=== PATIENT | male | born 1950 | race Caucasian/White ===

== ENCOUNTER 2024-04-04 10:51 | Observation (INO) ==
[2024-04-04 13:38] LABS: Urine Appearance Turbid; Urine Bilirubin Negative (Negative); Urine Blood Negative (Negative); Urine Color Yellow; Urine Glucose Negative (Negative); Urine Ketones 1+ (Negative); Urine Nitrite Negative (Negative); Urine Protein 2+ (>=100 mg/dL) (Negative); Urine Specific Gravity 1.021 (1.002-1.030); Urine Urobilinogen Negative (Negative); Urine pH 5.5 (5.0-8.0)
[2024-04-04 13:48] LABS: Hematocrit 33.2 % (38-53); Mean Corpuscular Hemoglobin 33.9 pg (27-33); Mean Corpuscular Hgb Conc 36.1 g/dL (31-36); Mean Corpuscular Volume 93.9 fL (80-97); Mean Platelet Volume 7.5 fL (7.5-11.2); Platelet Count 171 10^3/uL (150-450); Red Blood Count 3.54 10^6/uL (4.06-5.63); Red Cell Distribution Width 14.5 % (12-17); White Blood Count 6.9 10^3/uL (3.6-10.2)
[2024-04-04 14:02] LABS: Urine Bacteria Absent /HPF (Absent); Urine Granular Casts Present /LPF (Absent); Urine Red Blood Cell Trace(0-2/hpf) /HPF (0-Trace); Urine White Blood Cell 1+(6-10/hpf) /HPF (0-Trace)
[2024-04-04 14:07] LABS: Albumin 4.2 g/dL (3.2-5.2); Albumin/Globulin Ratio 1.3 (1-3); C Reactive Protein 172.11 mg/L (<8.01); Calcium 9.6 mg/dL (8.6-10.3); Creatinine, Serum 1.88 mg/dL (0.67-1.17); Globulin 3.3 g/dL (2-4); Magnesium 2.5 mg/dL (1.9-2.7); Potassium 3.4 mmol/L (3.5-5.0); Total Bilirubin 0.6 mg/dL (0.2-1.0); Total Protein 7.5 g/dL (6.4-8.9); eGFR CKD-EPI 37.7 (>60)
[2024-04-04 14:17] LABS: TSH Ultra Thyroid Stim Horm 2.01 mcIU/mL (0.34-5.60)
[2024-04-04 14:23] LABS: ABS Lymphocytes 0.4 10^3/uL (1.0-4.8); ABS Monocytes 1.5 10^3/uL (0.0-1.1); ABS Nucleated RBC 0.01 10^3/ul; Eosinophil % 0.1 %; Lymphocyte % 5.5 %; Nucleated Red Blood Cells % 0.1 %/100WBC (0.0-0.8)
[2024-04-04] MEDS: Lactated Ringers 1000 ml BAG 1,000 ML IV ONE (14:26)
[2024-04-04 14:59] LABS: High Sensitivity Troponin 1 Hr 13 pg/mL (<20)
[2024-04-04] MEDS: Iodixanol (CONTRAST) 320 MG/ML 100 ML SDV IV ONE (16:04)
[2024-04-04] MEDS: Enoxaparin 40 MG/0.4 ML SYR SUBCUT SCH (20:15)
[2024-04-04] MEDS: Lactated Ringers 1000 ml BAG 1,000 ML IV SCH (20:15)
[2024-04-05 05:32] LABS: Hematocrit 27.2 % (38-53); Hemoglobin 9.9 g/dL (13.2-16.3); Mean Corpuscular Hemoglobin 34.2 pg (27-33); Mean Corpuscular Hgb Conc 36.3 g/dL (31-36); Mean Corpuscular Volume 94.4 fL (80-97); Mean Platelet Volume 7.3 fL (7.5-11.2); Platelet Count 143 10^3/uL (150-450); Red Blood Count 2.89 10^6/uL (4.06-5.63)
[2024-04-05 05:51] LABS: ALT 28 U/L (7-52); AST 34 U/L (13-39); Albumin 3.6 g/dL (3.2-5.2); Albumin/Globulin Ratio 1.4 (1-3); Alkaline Phosphatase 72 U/L (35-149); Anion Gap 10 mmol/L (2-16); Blood Urea Nitrogen 44 mg/dL (6-24); CO2 Carbon Dioxide 26 mmol/L (22-32); Calcium 8.6 mg/dL (8.6-10.3); Chloride 94 mmol/L (101-111); Creatinine, Serum 1.78 mg/dL (0.67-1.17); Globulin 2.6 g/dL (2-4); Glucose 153 mg/dL (70-100); Magnesium 2.1 mg/dL (1.9-2.7); Potassium 2.9 mmol/L (3.5-5.0); Sodium 130 mmol/L (135-145); Total Bilirubin 0.6 mg/dL (0.2-1.0); Total Protein 6.2 g/dL (6.4-8.9); eGFR CKD-EPI 40.3 (>60)
[2024-04-05] MEDS: KCL 20 MEQ/100 ML IVPREMIX 20 MEQ/100 ML BAG IV SCH (07:56)
[2024-04-05 11:33] LABS: Folate > 20.00 ng/mL (5.90-24.80)
[2024-04-05 11:35] LABS: Vitamin B12 610 pg/mL (180-914)
[2024-04-05 12:18] LABS: % Iron Saturation 10 % (15-55); .Transferrin 178 mg/dL (203-362); Iron 26 ug/dL (50-212); Total Iron Binding Capacity 249 mcg/dL (250-450); Unsaturated Iron Binding 223 ug/dL
[2024-04-05 13:58] LABS: Ferritin 1641.8 ng/mL (24-336)
[2024-04-06 06:18] LABS: Hematocrit 24.8 % (38-53); Hemoglobin 9.1 g/dL (13.2-16.3); Mean Corpuscular Hemoglobin 34.2 pg (27-33); Mean Corpuscular Hgb Conc 36.6 g/dL (31-36); Mean Corpuscular Volume 93.6 fL (80-97); Mean Platelet Volume 7.3 fL (7.5-11.2); Platelet Count 148 10^3/uL (150-450); Red Blood Count 2.65 10^6/uL (4.06-5.63); Red Cell Distribution Width 14.2 % (12-17); White Blood Count 6.7 10^3/uL (3.6-10.2)
[2024-04-06 06:32] LABS: Calcium 8.4 mg/dL (8.6-10.3); Creatinine, Serum 1.5 mg/dL (0.67-1.17); Potassium 3.1 mmol/L (3.5-5.0); eGFR CKD-EPI 49.5 (>60)
[2024-04-06 07:25] LABS: ABS Lymphocytes 0.5 10^3/uL (1.0-4.8); ABS Monocytes 1.7 10^3/uL (0.0-1.1); ABS Neutrophils 4.5 10^3/uL (1.5-7.6); Eosinophil % 0.5 %; Lymphocyte % 7.8 %; RBC Morphology Normal (Normal)
[2024-04-06] MEDS: KCL 20 MEQ/100 ML IVPREMIX 20 MEQ/100 ML BAG IV SCH (08:12)
[2024-04-06 10:19] VITALS: BP 96/64
[2024-04-06] MEDS ORDERED: Sulfur Hexaflouride MICROSPHR 25 MG VIAL ONE (10:29)
[2024-04-07 08:33] LABS: Anaplasma phagocytophilum Negative (Negative); B. miyamotoi PCR, B Negative (Negative); Babesia divergens/MO-1 Negative (Negative); Babesia ducani Negative (Negative); Ehrlichia chaffeensis Negative (Negative); Ehrlichia ewingii/canis Negative (Negative); Ehrlichia muris eauclairensis Negative (Negative)
== END 2024-04-06 13:55 | disposition home or self-care (01) ==
LOC: EDHOLD 10:51 → ED 10:51 → MEDTELE 18:39
PROVIDERS: ADMIT Student in an Organized Health Care Education/Training Program; ATTEND Student in an Organized Health Care Education/Training Program